=== PATIENT | male | born 1990 | race Caucasian/White ===

== ENCOUNTER → 2020-02-14 | Emergency (ER) | payer MEDICAID, OTHER ==
[~2020-02-14] VITALS: Ht 182.9 cm; Wt 79.4 kg
[~2020-02-14] MED LIST: BACITRACIN TOP OINT 1 UD PKG TOP ONE; MORPHINE SULFATE 4 MG/ML SYR/VIAL IV ONE; ONDANSETRON HCL 4 MG/2 ML VIAL IV ONE; TETANUS-DIPTH-ACEL PERTUSSIS 0.5ML SYR Tdap IM ONE; cefTRIAXone 1GM/50ML D5W 50 ML IV ONE; cefTRIAXone SOD 1,000 MG VL IM ONE
[2020-02-15 00:19] VITALS: BP 135/86
== END | disposition home or self-care (01) ==
LOC: ER 20:14 → EDBD 20:14
DX: S51.832A Puncture wound without foreign body of left forearm, initial encounter (principal); S11.93XA Puncture wound without foreign body of unspecified part of neck, initial encounter; W54.0XXA Bitten by dog, initial encounter; Y93.89 Activity, other specified; Y92.89 Other specified places as the place of occurrence of the external cause; Y99.8 Other external cause status
CPT/HCPCS: 70490; 73060; 73090; 90471; 90715; 96365; 96375; 99284; J0696; J2270; J2405